=== PATIENT | male | born 1980 | race Native Hawaiian/Other Pacific Islander ===

== ENCOUNTER 2016-02-10 02:16 | Inpatient (IN) | payer OTHER ==
[~2016-02-10] VITALS: Ht 175.3 cm; Wt 92.7 kg
[2016-02-10 02:36] VITALS: BP 137/70; TEMP 98.6
[2016-02-10] MEDS ORDERED: GABA400C2 PO (04:06)
[2016-02-10] MEDS ORDERED: CLON1TAB18 PO (04:07)
[2016-02-10] MEDS ORDERED: SIMV40TA57 PO (04:08)
[2016-02-10] MEDS ORDERED: OXYC10TA3 PO (04:08)
[2016-02-10] MEDS ORDERED: ASPIRIN 8181 MG PO (04:08)
[2016-02-10] MEDS ORDERED: TRAMADOL HCL100 M1 PO (04:09)
[2016-02-10] MEDS ORDERED: METO25TA4 PO (04:10)
[2016-02-10 08:00] VITALS: BP 128/84; TEMP 98.5
[2016-02-10 08:15] VITALS: BP 142/88; TEMP 98.8; Ht 175.3 cm; Wt 92.7 kg
[2016-02-10 11:44] VITALS: BP 139/91; TEMP 98.5
[2016-02-10 15:56] VITALS: BP 153/70; TEMP 98.1
--- NOTE | 2016-02-10 17:20 | NUR ---
Pt. STANDING IN FU ARGUING AND CRYING WANTING SHOOT FOR PAIN. MEDICATION. INSTRUCTED DR. Gertrude MONTALVO. Pt. AMBULATED BACK DOWN THE FU.
--- NOTE | 2016-02-10 17:25 | NUR ---
Pt. CALLED REQUESTING SOME TO HELP HIM OFF THE FLOOR. UPON ARRIVING TO ROOM Pt. SITTING ON THE FLOOR AGAINST BED. NO SIGNS OF INJURIES OBSERVED. DR. JORGE NOTIFIED. PLACED Pt. ON FALL PECAUTIONS. 97.9, 97, 23,138/98, 99.
[2016-02-10 19:58] VITALS: BP 104/64; TEMP 97.7
--- NOTE | 2016-02-10 23:07 | NUR ---
PT COMPLAINT OF SEVERE PAIN TO RIGHT LEG AND FOOT. STATES THAT THE PAIN IS NOT RELIEVED BY THE MEDS HE TAKES AT HOME.
[2016-02-11 00:29] VITALS: BP 100/57; TEMP 98.2
[2016-02-11 04:00] VITALS: BP 108/73; TEMP 97.4
[2016-02-11 08:00] VITALS: BP 127/78; TEMP 97
[2016-02-11 12:00] VITALS: BP 107/70; TEMP 98.2
--- NOTE | 2016-02-11 12:32 | NUR ---
1000 SPOKE TO TEOFILO AT [facility] ABOUT CONSULT FOR DR MARQUEZ. PT'S DISCHARGE PENDING JIMMY CONSULT
--- NOTE | 2016-02-11 13:28 | NUR ---
1330 pt up in hallway with fuller bag on the iv pole. pt refuses to go back in room. conitunues to go back in room. dr hdez informed
--- NOTE | 2016-02-11 13:56 | NUR ---
REC'D REPORT FROM BRAEDEN LANDIS RN. ASSESSMENT COMPLETE. PT ASKING FOR PAIN MEDS. GIVEN SCHEDULED. PT REQUESTING MORE PAIN MEDS. INSTRUCTED PT MEDS ARE ON A SCHEDULE AND WILL GIVE SOON THEY ARE DO. AWARE.
--- NOTE | 2016-02-11 15:35 | NUR ---
CALLED TO PT'S ROOM FROM BATHROOM. PT SITTING ON FLOOR IN BATHROOM. PT STATED HE FELL TRYING TO GO TO THE BATHROOM. SMALL LACERATION NOTED TO FOREHEAD. PRESSURE APPLIED. NOTIFIED AND IN ROOM AT THIS TIME TALKING WITH PATIENT. PT ALERT AND ORIENTED. NO OTHER SYMPTOMS NOTED. VITALS STABLE. ASSISTED PT BACK TO BED. INSTRUCTED PT TO NOT GET OUT OF BED WITHOUT ASSISTANCE. CALL LIGHT WITHIN REACH. BED IN LOWEST POSITION. PT V/U.
[2016-02-11 16:00] VITALS: BP 130/88; TEMP 98.2
--- NOTE | 2016-02-11 16:23 | NUR ---
1430-UPON ENTERING PT'S ROOM, PT SITTING IN BED SHARPENING KNIFE. DR JORGE NOTIFIED AND ORDERED TO REMOVE FROM ROOM. INSTRUCTED PT WE WOULD LOCK THEM UP IN LOCK BOX. PT V/U.
--- NOTE | 2016-02-11 17:44 | NUR ---
DR JORGE NOTIFIED OF NEGATIVE RESULTS FROM CT SCAN'S. REVIEWED MEDICATIONS DUE AT THIS TIME FOR PT AND MD ORDERED OK TO GIVE.
[2016-02-11 20:13] VITALS: BP 126/80; TEMP 97.8
[2016-02-12 00:13] VITALS: BP 133/84; TEMP 98
[2016-02-12 05:30] VITALS: BP 117/73; TEMP 97.7
[2016-02-12 06:19] LABS: PLATELET COUNT 174 K/uL (142-355)
[2016-02-12 06:59] LABS: POTASSIUM 3.9 mmol/L (3.6-5.2); SODIUM 136 mmol/L (136-145)
[2016-02-12 07:39] VITALS: BP 98/61; TEMP 97.8
--- NOTE | 2016-02-12 08:06 | NUR ---
02/11/16 @ 2029 CALLED ASSISTED UNIT TO REMIND STAFF TO REMIND DR. MARQUEZ ABOUT CONSULT. SPOKE WITH SHIVANI RN. 02/11/16 @ 0045 CALLED ASSISTED UNIT SPOKE WITH SHIVANI RN AND SHE STATED DR. MARQUEZ IS STILL SEEING PATIENTS AND SHE WILL REMIND HIM OF THE CONSULT.
[2016-02-12 11:35] VITALS: BP 127/74; TEMP 98.1
--- NOTE | 2016-02-12 15:51 | NUR ---
0830 SPOKE WITH MINNA BLAIR RN AT [facility] CONCERNING CONSULT WITH DR MARQUEZ. ALL INFORMATION AND UPDATE GIVEN AT THIS TIME. AWAITING FURTHER ORDERS. DR WYMAN AWARE 1500 CONTACTED MINNA BLAIR RN AGAIN AT [facility] CONCERNING DR MARQUEZ. ALL INFORM GIVEN TO DR MARQUEZ PER MINNA. STILL AWAITING MD TO CONSULT.
[2016-02-12 16:20] VITALS: BP 110/74; TEMP 98.2
[2016-02-12 20:09] VITALS: BP 136/89; TEMP 98.1
--- NOTE | 2016-02-12 21:36 | NUR ---
IV DRESSING CHANGED AND CONNECTION BETWEEN CANNULA AND INJECTION SITE TIGHTENED. IV FLUSHED WITH NO LEAKING AND FLUIDS RESTARTED.
[2016-02-13] VITALS: BP 127/66; TEMP 97.6
[2016-02-13 04:00] VITALS: BP 97/56; TEMP 97.6
[2016-02-13 06:27] LABS: PLATELET COUNT 185 K/uL (142-355)
[2016-02-13 06:35] LABS: POTASSIUM 4.3 mmol/L (3.6-5.2); SODIUM 139 mmol/L (136-145)
[2016-02-13 08:00] VITALS: BP 98/55; TEMP 97.8
--- NOTE | 2016-02-13 10:58 | NUR ---
RECEIVED REPORT FROM ALAN BROWN RN
[2016-02-13 12:00] VITALS: BP 106/79; TEMP 98.3
--- NOTE | 2016-02-13 14:20 | NUR ---
PT'S IV AND CHANDLER REMOVED. PT TOLERATED WELL. PT GIVEN DISCHARGE INSTRUCTIONS AND VERBALIZED UNDERSTANDING.
--- NOTE | 2016-02-13 15:00 | NUR ---
PT RECEIVED HIS PERSONAL BELONGINGS: KITCHEN KNIFE, POCKET KNIFE, SHARPENING BLADES X2, 2 LIGHTERS, WRENCH, AND BLACK TOOL WITH ELECTRICAL TAPE. PT SIGNED BAG.
== END 2016-02-13 15:05 | disposition home or self-care (01) | DRG 552 ==
LOC: ED 02:16 → MED/SURG 03:30
PROVIDERS: Emergency Medicine; Internal Medicine
DX: M47.26 Other spondylosis with radiculopathy, lumbar region (principal); N39.498 Other specified urinary incontinence; G89.29 Other chronic pain
CPT/HCPCS: 36415; 51702; 80048; 80053; 80301; 80320; 81000; 83735; 85027; 96361; 96365; 96366; 96374; 96375; 99284; G0479; J1170; J1885